=== PATIENT | female | born 1995 | race Caucasian/White ===

== ENCOUNTER 2019-11-05 07:00 | Day surgery (SDC) | payer OTHER, SELFPAY ==
[~2019-11-05] VITALS: Ht 157.5 cm; Wt 57.6 kg
[2019-11-05 07:55] LABS: HCG,QUAL RESULT NEGATIVE (NEGATIVE)
[2019-11-05] MEDS ORDERED: ONDANSETRON HCL 4 MG/2 ML VIAL IVP PRN (08:30)
[2019-11-05] MEDS ORDERED: fentaNYL CITRATE/PF 100 MCG/2 ML AMP IVP PRN ×2 (08:30)
[2019-11-05] MEDS ORDERED: NS 1000 ML IV.SOLN IV ONE (09:40)
[2019-11-05] MEDS ORDERED: MIDAZOLAM HCL 5 MG/ML VIAL (VERSED) IV ONE (09:40)
[2019-11-05] MEDS ORDERED: SEVOFLURANE 15 MIN GAS INH ONE (09:40)
[2019-11-05] MEDS ORDERED: PROPOFOL 200MG/ 20ML VIAL (DIPRIVAN) IV ONE (09:40)
[2019-11-05 10:10] VITALS: BP_SYST 118
== END 2019-11-05 10:52 | disposition home or self-care (01) ==
LOC: SMU 07:00 → SDS 07:00
PROVIDERS: ATTEND Obstetrics & Gynecology
DX: T83.32XA Displacement of intrauterine contraceptive device, initial encounter (principal); Y83.8 Other surgical procedures as the cause of abnormal reaction of the patient, or of later complication, without mention of misadventure at the time of the procedure; Z11.59 Encounter for screening for other viral diseases
CPT/HCPCS: 36415; 58562; 84703; 86886; 86900; 86901; J2250; J2704; J7030; J7120; U0003